=== PATIENT | female | born 1990 | race African-American/Black ===

== ENCOUNTER 2022-03-16 19:21 | Emergency (ER) | payer MEDICAID ==
[~2022-03-16] VITALS: Ht 172.7 cm; Wt 120.0 kg
[2022-03-16] MEDS ORDERED: ACETAMINOPHEN 325MG TABLET PO ONE (22:00)
[2022-03-16] MEDS ORDERED: VISCOUS LIDOCAINE 2% 15 ML UDC MM ONE (22:00)
[2022-03-16] MEDS ORDERED: DEXAMETHASONE 10 MG/ML VIAL IM ONE (22:15)
[2022-03-16] MEDS ORDERED: AZITHROMYCIN 500 MG TABLET PO ONE (22:15)
[2022-03-16] MEDS ORDERED: KETOROLAC 30MG/ML VIAL IM ONE (22:15)
[2022-03-16] MEDS ORDERED: RACEPINEPHRINE 2.25% 0.5ML NEB VIAL HHN ONE (22:15)
[2022-03-16] MEDS ORDERED: MED4 MT (23:44)
[2022-03-16] MEDS ORDERED: AZIT250T12 MT (23:44)
[2022-03-16] MEDS ORDERED: IBUP-2029 MT (23:44)
[2022-03-17 00:40] VITALS: BP 122/66
== END 2022-03-17 00:40 | disposition home or self-care (01) ==
LOC: ER 19:21
DX: J03.90 Acute tonsillitis, unspecified (principal); F17.210 Nicotine dependence, cigarettes, uncomplicated
CPT/HCPCS: 87070; 87430; 94640; 96372; 99284; J1100; J1885; Z7610